=== PATIENT | male | born 1960 | race African-American/Black ===

== ENCOUNTER 2017-12-16 17:35 | Inpatient (IN) | payer OTHER ==
[2017-12-16 17:55] VITALS: BMI 20.9
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
[2017-12-16] MEDS ORDERED: ACETAMINOPHEN 325 MG TABLET (FP) PO PRN (20:28)
[2017-12-16] MEDS ORDERED: MAGNESIUM HYDROX 2400MG/30ML ORAL SUSPENSION 30 ML CUP PO PRN (20:28)
[2017-12-16] MEDS ORDERED: NICOTINE POLACRILEX 2 MG GUM BUC PRN (20:28)
[2017-12-16] MEDS ORDERED: IBUPROFEN 400 MG TABLET (FP) PO PRN (20:28)
[2017-12-16] MEDS ORDERED: MAG HYDROX/AL HYDROX/SIMETH 30 ML UNIT-DOSE CUP PO PRN (20:28)
[2017-12-16] MEDS ORDERED: P-EPHED 60MG/TRIPROLIDI 2.5MG TABLET PO PRN (20:28)
[2017-12-16] MEDS ORDERED: LOPERAMIDE HCL 2 MG CAPSULE PO PRN (20:28)
[2017-12-16] MEDS ORDERED: guaiFENesin/D-METHORPHAN HB 10 ML UNIT-DOSE CUPS PO PRN (20:28)
[2017-12-16] MEDS ORDERED: MENTHOL/PHENOL 1 EACH UD MM PRN (20:28)
[2017-12-16] MEDS ORDERED: MAGNESIUM CITRATE 300 ML BOTTLE PO PRN (20:28)
[2017-12-16] MEDS ORDERED: chlordiazePOXIDE HCL 25 MG CAPSULE PO PRN (20:28)
[2017-12-16] MEDS ORDERED: MELATONIN 5 MG TABLETS PO PRN (22:00)
[2017-12-16] MEDS: MONTELUKAST NA 10 MG TABLET PO SCH (22:44)
[2017-12-16] MEDS: AMOXICILLIN 500 MG CAPSULE (FP) PO SCH (22:44)
[2017-12-16] MEDS: chlordiazePOXIDE HCL 25 MG CAPSULE PO SCH (22:45)
[2017-12-16] MEDS: THIAMINE HCL 100 MG TABLET (FP) PO SCH (22:50)
[2017-12-16 23:14] LABS: URINE APPEARANCE CLEAR; URINE BILIRUBIN NEGATIVE (<2.0 mg/dL); URINE COLOR STRAW; URINE GLUCOSE (UA) NEGATIVE (NEGATIVE); URINE KETONE NEGATIVE (NEGATIVE); URINE LEUK ESTERASE NEGATIVE (NEGATIVE); URINE NITRITE NEGATIVE (NEGATIVE); URINE PROTEIN 1+ (NEGATIVE); URINE UROBILINOGEN NEGATIVE mg/dL (0.2-1.0)
[2017-12-17] MEDS: chlordiazePOXIDE HCL 25 MG CAPSULE PO SCH ×4 (06:17→22:15)
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
[2017-12-17 10:18] LABS: HEMATOCRIT 25.2 % (35.4-49); HEMOGLOBIN 8.2 GM/dL (11.7-16.9); MCH 28.4 pg (25.7-33.7); MCHC 32.5 g/dl (32.0-35.9); MEAN CELL VOLUME 87.3 fl (80-96); MEAN PLT VOLUME 8.8 fl (7.5-11.1); PLATELET COUNT 245 K/MM3 (134-434); RBC 2.89 M/mm3 (4.00-5.60); WHITE BLOOD COUNT 5.3 K/mm3 (4.0-10.0)
--- NOTE | 2017-12-17 10:28 | PN ---
S CIWA - CIWA Score Nausea/Vomitin-Mild Nausea/No Vomiting Muscle Tremors: 3 Anxiety: 2 Agitation: 2 Paroxysmal Sweats: 1-Minimal Palms Moist Orientation: 1-Uncertain about Date Tacttile Disturbances: 1-Very Mild Itch/Numbness Auditory Disturbances: 0-None Visual Disturbances: 0-None Headache: 1-Very Mild CIWA-Ar Total Score: 12 BHS Progress Note (SOAP) Subjective: sweat tremor gi distress anxiety restlessness trouble sleep at night Objective: 12/17/17 10:29 Vital Signs Temperature 98.6 F 12/17/17 07:37 Pulse Rate 85 12/17/17 07:37 Respiratory Rate 18 12/17/17 07:37 Blood Pressure 150/85 12/17/17 07:37 O2 Sat by Pulse Oximetry (%) 12/17/17 10:34 Vital Signs Laboratory Last Values WBC 5.3 K/mm3 (4.0-10.0) 12/17/17 07:00 RBC 2.89 M/mm3 (4.00-5.60) L 12/17/17 07:00 Hgb 8.2 GM/dL (11.7-16.9) L 12/17/17 07:00 Hct 25.2 % (35.4-49) L D 12/17/17 07:00 MCV 87.3 fl (80-96) 12/17/17 07:00 MCH 28.4 pg (25.7-33.7) 12/17/17 07:00 MCHC 32.5 g/dl (32.0-35.9) 12/17/17 07:00 RDW 18.0 % (11.9-15.9) H 12/17/17 07:00 Plt Count 245 K/MM3 (134-434) D 12/17/17 07:00 MPV 8.8 fl (7.5-11.1) 12/17/17 07:00 Urine Color Straw 12/16/17 23:00 Urine Appearance Clear 12/16/17 23:00 Urine pH 6.0 (5.0-8.0) 12/16/17 23:00 Ur Specific [place] 1.013 (1.010-1.035) 12/16/17 23:00 Urine Protein 1+ (NEGATIVE) H 12/16/17 23:00 Urine Glucose (UA) Negative (NEGATIVE) 12/16/17 23:00 Urine Ketones Negative (NEGATIVE) 12/16/17 23:00 Urine Blood 1+ (NEGATIVE) H 12/16/17 23:00 Urine Nitrite Negative (NEGATIVE) 12/16/17 23:00 Urine Bilirubin Negative (<2.0 mg/dL) 12/16/17 23:00 Urine Urobilinogen Negative mg/dL (0.2-1.0) 12/16/17 23:00 Ur Leukocyte Esterase Negative (NEGATIVE) 12/16/17 23:00 Urine WBC (Auto) <1 /hpf (3-5) 12/16/17 23:00 Urine RBC (Auto) <1 /hpf (0-3) 12/16/17 23:00 lab noted repeat cbc possible iron supplement 12/17/17 10:35 Assessment: 12/17/17 10:35 withdrawal sx Plan: continue detox
[2017-12-17] MEDS: NICOTINE 14 MG/24 HOURS TOPICAL PATCH TD SCH (10:38)
[2017-12-17] MEDS: PRENATAL VITAMINS W/ FOLIC ACID TABLET (FP) PO SCH (10:38)
[2017-12-17] MEDS: AMOXICILLIN 500 MG CAPSULE (FP) PO SCH ×2 (10:38→22:15)
[2017-12-17] MEDS: amLODIPine BESYLATE 10 MG TABLET (FP) PO SCH (10:38)
[2017-12-17] MEDS: ASPIRIN 81 MG CHEWABLE TABLETS PO SCH (10:39)
[2017-12-17] MEDS: CLOPIDOGREL BISULFATE 75 MG TABLET (FP) PO SCH (10:40)
[2017-12-17 10:53] LABS: ALBUMIN 2.7 g/dl (3.4-5.0); ALK PHOS 65 U/L (45-117); ANION GAP 10 MMOL/L (8-16); BILIRUBIN,TOTAL 0.2 mg/dL (0.2-1); BLOOD UREA NITROGEN 52 mg/dL (7-18); CALCIUM 7.2 mg/dL (8.5-10.1); CHLORIDE 116 mmol/L (98-107); CO2 18 mmol/L (21-32); CREATININE 4.6 mg/dL (0.55-1.3); GLUCOSE,RANDOM 105 mg/dL (74-106); POTASSIUM 4.2 mmol/L (3.5-5.1); SGOT/AST 26 U/L (15-37); SGPT/ALT 20 U/L (13-61); SODIUM 144 mmol/L (136-145); TOT PROT 6.8 g/dl (6.4-8.2)
--- NOTE | 2017-12-17 12:13 | EKG ---
Test Reason : Blood Pressure : / mmHG Vent. Rate : 079 BPM Atrial Rate : 079 BPM P-R Int : 130 ms QRS Dur : 086 ms QT Int : 396 ms P-R-T Axes : 017 077 072 degrees QTc Int : 454 ms NORMAL SINUS RHYTHM NORMAL ECG NO PREVIOUS ECGS AVAILABLE Confirmed by KENNEDY CAMACHO MD ([id number]) on 12/17/2017 12:12:31 PM Referred By: Confirmed By:KENNEDY CAMACHO MD
[2017-12-17] MEDS ORDERED: BACLOFEN 10 MG TABLET (FP) PO ONE (12:45)
[2017-12-17] MEDS: ALBUTEROL SO4 8 GM HFA INHALER IH PRN ×2 (13:56→22:17)
[2017-12-17] MEDS: ALBUTEROL SO4 2.5/IPRATROPIUM 0.5 INH SOL 3 ML VIAL.NEB. NEB PRN (19:43)
[2017-12-17] MEDS: MONTELUKAST NA 10 MG TABLET PO SCH (22:15)
[2017-12-17] MEDS: THIAMINE HCL 100 MG TABLET (FP) PO SCH (22:15)
[2017-12-18] MEDS: chlordiazePOXIDE HCL 25 MG CAPSULE PO SCH ×3 (06:00→17:25)
[2017-12-18 10:11] LABS: BASO % 0.5 % (0-2.0); EOS % 6.5 % (0-4.5); HEMATOCRIT 27.1 % (35.4-49); HEMOGLOBIN 8.6 GM/dL (11.7-16.9); LYMPH % 30.4 % (8-40); MCHC 31.9 g/dl (32.0-35.9); MEAN CELL VOLUME 87.8 fl (80-96); MEAN PLT VOLUME 8.8 fl (7.5-11.1); MONO % 11.4 % (3.8-10.2); NEUT % 51.2 % (42.8-82.8); PLATELET COUNT 227 K/MM3 (134-434); RBC 3.08 M/mm3 (4.00-5.60); RDW 18.3 % (11.9-15.9); WHITE BLOOD COUNT 4.1 K/mm3 (4.0-10.0)
--- NOTE | 2017-12-18 10:22 | PN ---
S CIWA - CIWA Score Nausea/Vomitin Muscle Tremors: 2 Anxiety: 2 Agitation: 0-Normal Activity Paroxysmal Sweats: No Perspiration Orientation: 0-Oriented Tacttile Disturbances: 0-None Auditory Disturbances: 0-None Visual Disturbances: 0-None Headache: 2-Mild CIWA-Ar Total Score: 8 BHS Progress Note (SOAP) Subjective: PATIENT PRESENTS WITH MILD HEADACHE, TREMORS, ANXIETY AND INSOMNIA. Objective: 12/18/17 10:19 Laboratory Tests 12/16/17 12/17/17 12/17/17 23:00 07:00 07:00 WBC 5.3 RBC 2.89 L Hgb 8.2 L Hct 25.2 L D MCV 87.3 MCH 28.4 MCHC 32.5 RDW 18.0 H Plt Count 245 D MPV 8.8 Absolute Neuts (auto) Neutrophils % Lymphocytes % Monocytes % Eosinophils % Basophils % Nucleated RBC % Sodium 144 Potassium 4.2 Chloride 116 H Carbon Dioxide 18 L Anion Gap 10 BUN 52 H Creatinine 4.6 H Creat Clearance w eGFR 13.33 Random Glucose 105 Calcium 7.2 L Total Bilirubin 0.2 AST 26 ALT 20 Alkaline Phosphatase 65 Total Protein 6.8 Albumin 2.7 L Urine Color Straw Urine Appearance Clear Urine pH 6.0 Ur Specific [place] 1.013 Urine Protein 1+ H Urine Glucose (UA) Negative Urine Ketones Negative Urine Blood 1+ H Urine Nitrite Negative Urine Bilirubin Negative Urine Urobilinogen Negative Ur Leukocyte Esterase Negative Urine WBC (Auto) <1 Urine RBC (Auto) <1 RPR Titer 12/17/17 12/18/17 07:00 07:00 WBC 4.1 RBC 3.08 L Hgb 8.6 L Hct 27.1 L MCV 87.8 MCH 28.0 MCHC 31.9 L RDW 18.3 H Plt Count 227 MPV 8.8 Absolute Neuts (auto) 2.1 Neutrophils % 51.2 Lymphocytes % 30.4 Monocytes % 11.4 H Eosinophils % 6.5 H Basophils % 0.5 Nucleated RBC % 0 Sodium Potassium Chloride Carbon Dioxide Anion Gap BUN Creatinine Creat Clearance w eGFR Random Glucose Calcium Total Bilirubin AST ALT Alkaline Phosphatase Total Protein Albumin Urine Color Urine Appearance Urine pH Ur Specific [place] Urine Protein Urine Glucose (UA) Urine Ketones Urine Blood Urine Nitrite Urine Bilirubin Urine Urobilinogen Ur Leukocyte Esterase Urine WBC (Auto) Urine RBC (Auto) RPR Titer Nonreactive SKIN WARM AND DRY CAR S1S2 RESP CTA BL EXT FULL ROM, MILD TREMORS ALERT AND ORIENTED X 3 NEURO +PERRLA, EOMS INTACT BL 12/18/17 10:23 Assessment: 12/18/17 10:20 WITHDRAWAL SYNDROME ANEMIA ? KIDNEY DISEASE-MAY BE RELATED TO HTN 12/18/17 10:21 Plan: CONTINUE DETOX ORDERED ENCOURAGE ORAL FLUIDS ADD LISINOPRIL 10MG DAILY FOR ELEVATED BP PATIENT INFORMED OF LAB RESULTS AND ADVISED TO FOLLOW UP WITH PCP WITHIN ONE WEEK POST D/C CONTINUE TO MONITOR CLINICALLY
[2017-12-18 10:26] LABS: ALBUMIN 2.7 g/dl (3.4-5.0); ALK PHOS 61 U/L (45-117); ANION GAP 10 MMOL/L (8-16); BILIRUBIN,TOTAL 0.2 mg/dL (0.2-1); BLOOD UREA NITROGEN 43 mg/dL (7-18); CHLORIDE 116 mmol/L (98-107); CO2 19 mmol/L (21-32); CREATININE 3.3 mg/dL (0.55-1.3); GLUCOSE,RANDOM 95 mg/dL (74-106); POTASSIUM 4.3 mmol/L (3.5-5.1); SGOT/AST 19 U/L (15-37); SGPT/ALT 17 U/L (13-61); SODIUM 145 mmol/L (136-145); TOT PROT 6.9 g/dl (6.4-8.2)
[2017-12-18] MEDS: PRENATAL VITAMINS W/ FOLIC ACID TABLET (FP) PO SCH (10:43)
[2017-12-18] MEDS: ASPIRIN 81 MG CHEWABLE TABLETS PO SCH (10:43)
[2017-12-18] MEDS: amLODIPine BESYLATE 10 MG TABLET (FP) PO SCH (10:43)
[2017-12-18] MEDS: NICOTINE 14 MG/24 HOURS TOPICAL PATCH TD SCH (10:43)
[2017-12-18] MEDS: CLOPIDOGREL BISULFATE 75 MG TABLET (FP) PO SCH (10:43)
[2017-12-18] MEDS: AMOXICILLIN 500 MG CAPSULE (FP) PO SCH ×2 (10:43→22:45)
[2017-12-18] MEDS: LISINOPRIL 10 MG TABLET (FP) PO SCH (10:44)
[2017-12-18] MEDS: ALBUTEROL SO4 8 GM HFA INHALER IH PRN (10:46)
[2017-12-18] MEDS: ALBUTEROL SO4 2.5/IPRATROPIUM 0.5 INH SOL 3 ML VIAL.NEB. NEB PRN (17:14)
[2017-12-18] MEDS: THIAMINE HCL 100 MG TABLET (FP) PO SCH (22:44)
[2017-12-18] MEDS: MONTELUKAST NA 10 MG TABLET PO SCH (22:45)
[2017-12-18] MEDS: chlordiazePOXIDE 5 MG CAPSULE PO SCH (22:57)
[2017-12-19] MEDS: chlordiazePOXIDE 5 MG CAPSULE PO SCH ×3 (06:36→16:55)
[2017-12-19] MEDS ORDERED: LIDOCAINE 5% TOPICAL PATCH TP SCH (10:00)
[2017-12-19] MEDS: ALBUTEROL SO4 2.5/IPRATROPIUM 0.5 INH SOL 3 ML VIAL.NEB. NEB PRN ×2 (10:03→20:06)
[2017-12-19] MEDS: CLOPIDOGREL BISULFATE 75 MG TABLET (FP) PO SCH (10:23)
[2017-12-19] MEDS: amLODIPine BESYLATE 10 MG TABLET (FP) PO SCH (10:23)
[2017-12-19] MEDS: PRENATAL VITAMINS W/ FOLIC ACID TABLET (FP) PO SCH (10:23)
[2017-12-19] MEDS: ASPIRIN 81 MG CHEWABLE TABLETS PO SCH (10:23)
[2017-12-19] MEDS: LISINOPRIL 10 MG TABLET (FP) PO SCH (10:23)
[2017-12-19] MEDS: AMOXICILLIN 500 MG CAPSULE (FP) PO SCH (10:23)
[2017-12-19] MEDS: NICOTINE 14 MG/24 HOURS TOPICAL PATCH TD SCH (11:38)
[2017-12-19] MEDS: ALBUTEROL SO4 8 GM HFA INHALER IH PRN (12:09)
[2017-12-19] MEDS: CYCLOBENZAPRINE HCL 5 MG TABLET PO SCH ×2 (14:11→22:57)
--- NOTE | 2017-12-19 14:57 | PN ---
[facility] Progress Note Note: Vital Signs Temperature 98.4 F 12/19/17 10:51 Pulse Rate 95 H 12/19/17 10:51 Respiratory Rate 16 12/19/17 10:51 Blood Pressure 135/92 12/19/17 10:51 O2 Sat by Pulse Oximetry (%) Laboratory Last Values WBC 4.1 K/mm3 (4.0-10.0) 12/18/17 07:00 RBC 3.08 M/mm3 (4.00-5.60) L 12/18/17 07:00 Hgb 8.6 GM/dL (11.7-16.9) L 12/18/17 07:00 Hct 27.1 % (35.4-49) L 12/18/17 07:00 MCV 87.8 fl (80-96) 12/18/17 07:00 MCH 28.0 pg (25.7-33.7) 12/18/17 07:00 MCHC 31.9 g/dl (32.0-35.9) L 12/18/17 07:00 RDW 18.3 % (11.9-15.9) H 12/18/17 07:00 Plt Count 227 K/MM3 (134-434) 12/18/17 07:00 MPV 8.8 fl (7.5-11.1) 12/18/17 07:00 Absolute Neuts (auto) 2.1 K/mm3 (1.5-8.0) 12/18/17 07:00 Neutrophils % 51.2 % (42.8-82.8) 12/18/17 07:00 Lymphocytes % 30.4 % (8-40) 12/18/17 07:00 Monocytes % 11.4 % (3.8-10.2) H 12/18/17 07:00 Eosinophils % 6.5 % (0-4.5) H 12/18/17 07:00 Basophils % 0.5 % (0-2.0) 12/18/17 07:00 Nucleated RBC % 0 % (0-0) 12/18/17 07:00 Sodium 145 mmol/L (136-145) 12/18/17 07:00 Potassium 4.3 mmol/L (3.5-5.1) 12/18/17 07:00 Chloride 116 mmol/L (98-107) H 12/18/17 07:00 Carbon Dioxide 19 mmol/L (21-32) L 12/18/17 07:00 Anion Gap 10 MMOL/L (8-16) 12/18/17 07:00 BUN 43 mg/dL (7-18) H 12/18/17 07:00 Creatinine 3.3 mg/dL (0.55-1.3) H 12/18/17 07:00 Creat Clearance w eGFR 19.56 (>60) 12/18/17 07:00 Random Glucose 95 mg/dL (74-106) 12/18/17 07:00 Calcium 8.0 mg/dL (8.5-10.1) L 12/18/17 07:00 Total Bilirubin 0.2 mg/dL (0.2-1) 12/18/17 07:00 AST 19 U/L (15-37) 12/18/17 07:00 ALT 17 U/L (13-61) 12/18/17 07:00 Alkaline Phosphatase 61 U/L (45-117) 12/18/17 07:00 Total Protein 6.9 g/dl (6.4-8.2) 12/18/17 07:00 Albumin 2.7 g/dl (3.4-5.0) L 12/18/17 07:00 Urine Color Straw 12/16/17 23:00 Urine Appearance Clear 12/16/17 23:00 Urine pH 6.0 (5.0-8.0) 12/16/17 23:00 Ur Specific [place] 1.013 (1.010-1.035) 12/16/17 23:00 Urine Protein 1+ (NEGATIVE) H 12/16/17 23:00 Urine Glucose (UA) Negative (NEGATIVE) 12/16/17 23:00 Urine Ketones Negative (NEGATIVE) 12/16/17 23:00 Urine Blood 1+ (NEGATIVE) H 12/16/17 23:00 Urine Nitrite Negative (NEGATIVE) 12/16/17 23:00 Urine Bilirubin Negative (<2.0 mg/dL) 12/16/17 23:00 Urine Urobilinogen Negative mg/dL (0.2-1.0) 12/16/17 23:00 Ur Leukocyte Esterase Negative (NEGATIVE) 12/16/17 23:00 Urine WBC (Auto) <1 /hpf (3-5) 12/16/17 23:00 Urine RBC (Auto) <1 /hpf (0-3) 12/16/17 23:00 RPR Titer Nonreactive (NONREACTIVE) 12/17/17 07:00 c/o chronic low back pain, interrupted sleep, anxious Aox3 no distress + wheezing full ROM ambulating in the unit withdrawal;l symptoms asthma continue detox neb tx prn increase fluids patient follow up with PCP 1 week post discharge continue to monitor
[2017-12-19] MEDS ORDERED: LIDOCAINE PATCH REMOVAL MC SCH (22:00)
[2017-12-19] MEDS: chlordiazePOXIDE HCL 10 MG CAPSULE PO SCH (22:57)
[2017-12-19] MEDS: THIAMINE HCL 100 MG TABLET (FP) PO SCH (22:58)
[2017-12-19] MEDS: MONTELUKAST NA 10 MG TABLET PO SCH (22:58)
[2017-12-20] MEDS: CYCLOBENZAPRINE HCL 5 MG TABLET PO SCH (05:25)
[2017-12-20] MEDS: chlordiazePOXIDE HCL 10 MG CAPSULE PO SCH (06:21)
--- NOTE | 2017-12-20 09:23 | DS ---
[facility] Detox Discharge Summary Admission Date: 12/16/17 Discharge Date: 12/20/17 - History Present History: Alcohol Dependence, Sedative Dependence Additional Comments: 57 years old male admitted on 12/16/17 for alcohol and benzo withdrawal sx completed alcohol and benzo detox regimen tolerderated well denies alcohol benzo withdrawal sx alert oriented x 3 no acute distress aftercare [place] Pertinent Past History: patient agrees to ffollow up with infectious disease specialist for medical issues - Physical Exam Results Vital Signs: Vital Signs Temperature 97.7 F 12/20/17 08:04 Pulse Rate 83 12/20/17 08:04 Respiratory Rate 18 12/20/17 08:04 Blood Pressure 145/79 12/20/17 08:04 O2 Sat by Pulse Oximetry (%) Pertinent Admission Physical Exam Findings: alcohol and benzo detox Vital Signs Temperature 96.9 F L 12/20/17 10:00 Pulse Rate 58 L 12/20/17 10:00 Respiratory Rate 16 12/20/17 10:00 Blood Pressure 112/69 12/20/17 10:00 O2 Sat by Pulse Oximetry (%) Laboratory Last Values WBC 4.1 K/mm3 (4.0-10.0) 12/18/17 07:00 RBC 3.08 M/mm3 (4.00-5.60) L 12/18/17 07:00 Hgb 8.6 GM/dL (11.7-16.9) L 12/18/17 07:00 Hct 27.1 % (35.4-49) L 12/18/17 07:00 MCV 87.8 fl (80-96) 12/18/17 07:00 MCH 28.0 pg (25.7-33.7) 12/18/17 07:00 MCHC 31.9 g/dl (32.0-35.9) L 12/18/17 07:00 RDW 18.3 % (11.9-15.9) H 12/18/17 07:00 Plt Count 227 K/MM3 (134-434) 12/18/17 07:00 MPV 8.8 fl (7.5-11.1) 12/18/17 07:00 Absolute Neuts (auto) 2.1 K/mm3 (1.5-8.0) 12/18/17 07:00 Neutrophils % 51.2 % (42.8-82.8) 12/18/17 07:00 Lymphocytes % 30.4 % (8-40) 12/18/17 07:00 Monocytes % 11.4 % (3.8-10.2) H 12/18/17 07:00 Eosinophils % 6.5 % (0-4.5) H 12/18/17 07:00 Basophils % 0.5 % (0-2.0) 12/18/17 07:00 Nucleated RBC % 0 % (0-0) 12/18/17 07:00 Sodium 145 mmol/L (136-145) 12/18/17 07:00 Potassium 4.3 mmol/L (3.5-5.1) 12/18/17 07:00 Chloride 116 mmol/L (98-107) H 12/18/17 07:00 Carbon Dioxide 19 mmol/L (21-32) L 12/18/17 07:00 Anion Gap 10 MMOL/L (8-16) 12/18/17 07:00 BUN 43 mg/dL (7-18) H 12/18/17 07:00 Creatinine 3.3 mg/dL (0.55-1.3) H 12/18/17 07:00 Creat Clearance w eGFR 19.56 (>60) 12/18/17 07:00 Random Glucose 95 mg/dL (74-106) 12/18/17 07:00 Calcium 8.0 mg/dL (8.5-10.1) L 12/18/17 07:00 Total Bilirubin 0.2 mg/dL (0.2-1) 12/18/17 07:00 AST 19 U/L (15-37) 12/18/17 07:00 ALT 17 U/L (13-61) 12/18/17 07:00 Alkaline Phosphatase 61 U/L (45-117) 12/18/17 07:00 Total Protein 6.9 g/dl (6.4-8.2) 12/18/17 07:00 Albumin 2.7 g/dl (3.4-5.0) L 12/18/17 07:00 Urine Color Straw 12/16/17 23:00 Urine Appearance Clear 12/16/17 23:00 Urine pH 6.0 (5.0-8.0) 12/16/17 23:00 Ur Specific [place] 1.013 (1.010-1.035) 12/16/17 23:00 Urine Protein 1+ (NEGATIVE) H 12/16/17 23:00 Urine Glucose (UA) Negative (NEGATIVE) 12/16/17 23:00 Urine Ketones Negative (NEGATIVE) 12/16/17 23:00 Urine Blood 1+ (NEGATIVE) H 12/16/17 23:00 Urine Nitrite Negative (NEGATIVE) 12/16/17 23:00 Urine Bilirubin Negative (<2.0 mg/dL) 12/16/17 23:00 Urine Urobilinogen Negative mg/dL (0.2-1.0) 12/16/17 23:00 Ur Leukocyte Esterase Negative (NEGATIVE) 12/16/17 23:00 Urine WBC (Auto) <1 /hpf (3-5) 12/16/17 23:00 Urine RBC (Auto) <1 /hpf (0-3) 12/16/17 23:00 RPR Titer Nonreactive (NONREACTIVE) 12/17/17 07:00 lab noted patient has nephrology follow up - Treatment Hospital Course: Detox Protocol Followed, Detoxed Safely, Responded well, Discharged Condition Good, Rehab Referral Accepted Patient has Accepted a Rehab Referral to: [facility] - Medication Discharge Medications: Ambulatory Orders Efavirenz/Emtricitab/Tenofovir [Atripla Tablet -] 1 tab PO DAILY 04/18/15 Abacavir/Dolutegravir/Lamivudi [Triumeq Tablet] 1 each PO DAILY 12/17/17 Bupropion HCl [Wellbutrin Xl -] 150 mg PO DAILY #30 tab.sr.24h 12/17/17 Albuterol Sulfate Inhaler - [Ventolin HFA Inhaler -] 2 inh PO Q6H #1 inhaler Amlodipine Besylate [Norvasc -] 10 mg PO DAILY #30 tablet 12/20/17 Atorvastatin Ca [Lipitor] 40 mg PO HS #30 tablet 12/20/17 Clopidogrel Bisulfate [Plavix -] 75 mg PO DAILY #30 tablet 12/20/17 Lisinopril [Prinivil] 10 mg PO DAILY #30 tablet 12/20/17 Montelukast Na [Singulair -] 10 mg PO HS #30 tablet 12/20/17 - Diagnosis (1) Alcohol dependence with uncomplicated withdrawal Status: Acute (2) Nicotine dependence Status: Acute Qualifiers: Nicotine product type: cigarettes Substance use status: in withdrawal Qualified Code(s): F17.213 - Nicotine dependence, cigarettes, with withdrawal (3) Sedative, hypnotic or anxiolytic dependence with withdrawal, uncomplicated Status: Acute (4) Weight loss Status: Acute (5) Asthma Status: Chronic Qualifiers: Asthma severity: moderate Asthma complication type: uncomplicated (6) HIV (human immunodeficiency virus infection) Status: Chronic (7) Hypertension Status: Chronic Qualifiers: Hypertension type: essential hypertension Qualified Code(s): I10 - Essential (primary) hypertension - AMA Did Patient Leave Against Medical Advice: No
[2017-12-20 10:00] VITALS: BP 112/69; PULSE 58; TEMP 96.9
== END 2017-12-20 09:30 | disposition home or self-care (01) | DRG 774 ==
LOC: YASAS 17:35 → Y6N 19:22
PROC: HZ2ZZZZ Detoxification Services for Substance Abuse Treatment (ICD-10-PCS; principal; 2017-12-16)
DX: F10.230 Alcohol dependence with withdrawal, uncomplicated (principal); F13.230 Sedative, hypnotic or anxiolytic dependence with withdrawal, uncomplicated; F14.20 Cocaine dependence, uncomplicated; F12.20 Cannabis dependence, uncomplicated; F17.213 Nicotine dependence, cigarettes, with withdrawal; F19.24 Other psychoactive substance dependence with psychoactive substance-induced mood disorder; Z21 Asymptomatic human immunodeficiency virus [HIV] infection status; J45.20 Mild intermittent asthma, uncomplicated; K05.10 Chronic gingivitis, plaque induced; K02.9 Dental caries, unspecified; R63.4 Abnormal weight loss; Z68.21 Body mass index [BMI] 21.0-21.9, adult; Z86.79 Personal history of other diseases of the circulatory system
CPT/HCPCS: 36415; 71046-TC-FY; 80053; 81003; 81015; 85025; 85027; 86593; 93005; 93010; 94640; J0475; J7620